=== PATIENT | male | born 1955 | race Two or more races ===

== ENCOUNTER 2019-07-20 19:49 | Emergency (ER) | payer OTHER ==
[~2019-07-20] VITALS: Ht 175.3 cm; Wt 81.8 kg
[2019-07-20] MEDS ORDERED: HYDROcodone/acetaminophen 5mg/325mg tablet PO ONE (20:25)
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
[2019-07-20] MEDS ORDERED: HYDR-3965 PO (23:06)
--- NOTE | 2019-07-20 23:14 | NUR ---
HAD THE PATIENT GET UP AND WALK AROUND. NO NEW PAINS, JUST PAIN IN LUMBAR TO CHEST WALL ANTERIORLY. PA SAW HIM WALK. PA PRESCRIBED PAIN MEDICATION PRESCRIPTION. A PRINT OUT TO [facility] 24 HOUR PHARMACY PRINTED AND GIVEN TO SON AND PAUL IS EXPLAINING TO THEM HOW TO GET THERE.
[2019-07-20 23:15] VITALS: BP 148/87
== END 2019-07-20 23:17 | disposition home or self-care (01) ==
LOC: ER 19:50
DX: M54.2 Cervicalgia (principal); R07.89 Other chest pain; M54.6 Pain in thoracic spine; M54.5 Low back pain; Z79.899 Other long term (current) drug therapy; V49.59XA Passenger injured in collision with other motor vehicles in traffic accident, initial encounter; Y93.89 Activity, other specified; Y92.488 Other paved roadways as the place of occurrence of the external cause; Y99.8 Other external cause status
CPT/HCPCS: 70450; 71250; 72125; 72131; 99284

== ENCOUNTER 2019-07-22 17:17 | Emergency (ER) | payer OTHER ==
[~2019-07-22] VITALS: Ht 165.1 cm; Wt 85.0 kg
[~2019-07-22 17:17] MED LIST: HYDR-3965 PO
--- NOTE | 2019-07-22 17:33 | NUR ---
SON IN TRIAGE TO TRANSLATE FOR PATIENT
[2019-07-22] MEDS ORDERED: HYDROcodone/acetaminophen 10/325mg tab PO ONE (19:05)
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
[2019-07-22] MEDS ORDERED: HYDR-3965 PO (20:10)
[2019-07-22 20:26] VITALS: BP 136/72
== END 2019-07-22 20:30 | disposition home or self-care (01) ==
LOC: ER 17:18
DX: S20.211A Contusion of right front wall of thorax, initial encounter (principal); M79.671 Pain in right foot; M54.5 Low back pain; V49.59XA Passenger injured in collision with other motor vehicles in traffic accident, initial encounter; Y93.89 Activity, other specified; Y92.89 Other specified places as the place of occurrence of the external cause; Y99.2 Volunteer activity
CPT/HCPCS: 72192; 73630; 99284